=== PATIENT | female | born 1975 | race American Indian/Alaskan Native ===

== ENCOUNTER 2018-07-20 21:12 | Emergency (ER) | payer OTHER ==
[2018-07-20] MEDS: HYDROmorphone 2 MG/ML SDV IM ONE (21:39)
[2018-07-20] MEDS: Promethazine 25 MG/ML SDV IM ONE (21:46)
--- NOTE | 2018-07-20 22:01 | EDM.PDOC ---
ED HPI GENERAL MEDICAL PROBLEM - General Chief Complaint: Headache Stated Complaint: HEADACHE Time Seen by Provider: 07/20/18 21:20 Source of Information: Reports: Patient History Limitations: Reports: No Limitations - History of Present Illness INITIAL COMMENTS - FREE TEXT/NARRATIVE: Pt claims that she has been having sever migraine headache since 3 PM today. She has been having throbbing right sided headache, with nausea and vomiting. Pt did take her zomig and has not stopped the headache. tired to sleep in dark room. C/o photophobia and phonophobia. Pt claims she get headache 2-3 times a week, and zomig helps with here headache, but sometimes her headache gets worse. Pt has history of chronic migraine, has tired Topamax, Botox injection. Presently followup at pain clinic in [place]. Onset: Today Onset Date: 07/20/18 Onset Time: 15:00 Duration: Getting Worse Location: Reports: Head Quality: Reports: Ache Severity: Severe Improves with: Reports: None Worsens with: Reports: None Associated Symptoms: Reports: Headaches, Nausea/Vomiting. Denies: Confusion, Chest Pain, Cough, Diaphoresis, Fever/Chills, Rash, Seizure, Shortness of Breath , Syncope, Weakness - Related Data Allergies Allergy/AdvReac Type Severity Reaction Status Date / Time acetaminophen Allergy Nausea and Verified 07/20/18 21:49 [From Darvocet-N] Vomiting propoxyphene Allergy Nausea and Verified 07/20/18 21:49 [From Darvocet-N] Vomiting Home Meds: Home Meds Ondansetron HCl [Zofran] 4 mg PO Q4H PRN 07/20/18 [History] Sertraline [Zoloft] 25 mg PO BEDTIME 07/20/18 [History] Spironolactone 50 mg PO DAILY 07/20/18 [History] ZOLMitriptan [Zomig] 5 mg PO PRN 07/20/18 [History] tiZANidine [Zanaflex] 4 mg PO BEDTIME PRN 07/20/18 [History] traMADol [Ultram] 50 mg PO Q4H PRN 07/20/18 [History] ED ROS GENERAL - Review of Systems Review Of Systems: See Below Constitutional: Denies: Fever, Chills HEENT: Reports: Other (photophobia and phonophobia). Denies: Ear Pain, Rhinitis , Throat Pain Respiratory: Denies: Shortness of Breath, Pleuritic Chest Pain, Cough, Sputum Cardiovascular: Denies: Chest Pain, Lightheadedness GI/Abdominal: Reports: Nausea, Vomiting. Denies: Abdominal Pain : Denies: Dysuria, Frequency Musculoskeletal: Denies: Joint Pain, Joint Swelling Neurological: Reports: Headache. Denies: Confusion, Dizziness, Numbness, Tingling, Tremors, Difficulty Walking, Change in Speech, Gait Disturbance ED EXAM, GENERAL - Physical Exam Exam: See Below Exam Limited By: No Limitations General Appearance: Alert, WD/WN, Moderate Distress, Other (wretching but no vomtus) Eye Exam: Bilateral Eye: EOMI, PERRL Ears: Normal External Exam, Normal Canal, Hearing Grossly Normal, Normal TMs Ear Exam: Bilateral Ear: Auricle Normal, Canal Normal, TM normal Nose: Normal Inspection, Normal Mucosa, No Blood Throat/Mouth: Normal Inspection, Normal Lips, Normal Teeth, Normal Gums, Normal Oropharynx, Normal Voice, No Airway Compromise Head: Atraumatic, Normocephalic Neck: Normal Inspection, Supple, Non-Tender, Full Range of Motion Respiratory/Chest: No Respiratory Distress, Lungs Clear, Normal Breath Sounds, No Accessory Muscle Use, Chest Non-Tender Cardiovascular: Normal Peripheral Pulses, Regular Rate, Rhythm, No Edema, No Gallop, No JVD, No Murmur, No Rub Neurological: Alert, Oriented, CN II-XII Intact, Normal Cognition, Normal Gait, Normal Reflexes, No Motor/Sensory Deficits Psychiatric: Normal Affect, Normal Mood Skin Exam: Warm, Intact Course - Vital Signs Text/Narrative:: Pt is having acute migraine attack,with history of chronic migraine. Pt did receive Dilaudid 2mg Im with Phenergan 50mg. And resting in the emergency room. Pt's nausea and wretching has resolved, still c/o headache. Pt advised to go home and rest, and the headache should abort. advised to followup with her pain clinic for further care. - Orders/Labs/Meds Meds: Medications Discontinued Medications Generic Name Dose Route Start Last Admin Trade Name Freq PRN Reason Stop Dose Admin Hydromorphone HCl 2 mg 07/20/18 21:36 Dilaudid IM 07/20/18 21:37 ONETIME ONE Promethazine HCl 50 mg 05/22/19 21:37 Phenergan IM 07/20/18 21:38 ONETIME ONE Departure - Departure Time of Disposition: 22:10 Disposition: Home, Self-Care 01 Condition: Fair Clinical Impression: Migraine - Discharge Information *PRESCRIPTION DRUG MONITORING PROGRAM REVIEWED*: Not Applicable *COPY OF PRESCRIPTION DRUG MONITORING REPORT IN PATIENT HUNG: Not Applicable Additional Instructions: Pt is having acute migraine attack,with history of chronic migraine. Pt did receive Dilaudid 2mg Im with Phenergan 50mg. And resting in the emergency room. Pt advised to go home and rest, and the headache should abort. advised to followup with her pain clinic for further care - Problem List & Annotations (1) Migraine SNOMED Code(s): 19465477 Code(s): G43.909 - MIGRAINE, UNSP, NOT INTRACTABLE, WITHOUT STATUS MIGRAINOSUS Status: Acute - Problem List Review Problem List Initiated/Reviewed/Updated: Yes - Assessment/Plan Assessment:: migraine attack Plan: Pt is having acute migraine attack,with history of chronic migraine. Pt did receive Dilaudid 2mg Im with Phenergan 50mg. And resting in the emergency room. Pt's nausea and wretching has resolved, still c/o headache. Pt advised to go home and rest, and the headache should abort. advised to followup with her pain clinic for further care
== END 2018-07-20 22:00 | disposition home or self-care (01) ==
LOC: LB.ED 21:12
DX: G43.909 Migraine, unspecified, not intractable, without status migrainosus (principal); Z88.6 Allergy status to analgesic agent; Z88.8 Allergy status to other drugs, medicaments and biological substances
CPT/HCPCS: 96372; 99283; J1170; J2550

== ENCOUNTER 2019-06-15 16:51 | Emergency (ER) | payer OTHER ==
[2019-06-15] MEDS: Sodium Chloride 0.9% 1,000 ML IV ONE (16:55)
[2019-06-15] MEDS: Ketorolac 60 MG/2 ML SDV IVPUSH ONE (17:40)
[2019-06-15] MEDS: Ketorolac 30 MG/ML SDV ONE (17:40)
[2019-06-15] MEDS: diphenhydrAMINE 50 MG/ML SDV IVPUSH ONE (17:44)
[2019-06-15] MEDS ORDERED: diphenhydrAMINE 50 MG/ML SDV ONE (17:44)
[2019-06-15] MEDS ORDERED: Prochlorperazine 10 MG/2 ML SDV ONE (17:45)
[2019-06-15] MEDS: Prochlorperazine 10 MG/2 ML SDV IVPUSH ONE (17:50)
--- NOTE | 2019-06-15 18:12 | EDM.PDOC ---
ED HPI GENERAL MEDICAL PROBLEM - General Time Seen by Provider: 06/15/19 17:00 Source of Information: Reports: Patient History Limitations: Reports: No Limitations - History of Present Illness INITIAL COMMENTS - FREE TEXT/NARRATIVE: Estelita presents tonight for evaluation of atypical migraine. She states that once a year she has a migraine of the severity, and has had to be treated through the emergency department for such. She denies any changes including recent head trauma or fevers. She was feeling well until around 1 PM this afternoon when she had the gradual onset of a typical throbbing headache. This became associated with nausea and photophobia. She took 2 Zomig, as well as a Zofran, and was not able to find any particular relief. She subsequently came in. She has had no recent malaise, coughing, or neurologic changes. Her gait and coordination have been normal. 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 Treatments, NSAIDS Head Pain Score (Numeric/FACES): 10 - Related Data Allergies Allergy/AdvReac Type Severity Reaction Status Date / Time acetaminophen Allergy Nausea and Verified 07/20/18 21:49 [From Darvocet-N] Vomiting propoxyphene Allergy Nausea and Verified 07/20/18 21:49 [From Darvocet-N] Vomiting Home Meds: Home Meds Ondansetron HCl [Zofran] 4 mg PO Q4H PRN 07/20/18 [History] Sertraline [Zoloft] 25 mg PO BEDTIME 07/20/18 [History] Spironolactone 50 mg PO DAILY 07/20/18 [History] ZOLMitriptan [Zomig] 5 mg PO BID PRN 07/20/18 [History] tiZANidine [Zanaflex] 4 mg PO BEDTIME PRN 07/20/18 [History] traMADol [Ultram] 50 mg PO Q4H PRN 07/20/18 [History] Past Medical History HEENT History: Reports: Other (See Below) Other HEENT History: migraine headaches Cardiovascular History: Reports: Hypertension Social & Family History - Tobacco Use Smoking Status *Q: Never Smoker Second Hand Smoke Exposure: No - Caffeine Use Caffeine Use: Reports: None - Recreational Drug Use Recreational Drug Use: No ED ROS GENERAL - Review of Systems Review Of Systems: Comprehensive ROS is negative, except as noted in HPI. ED EXAM, GENERAL - Physical Exam Exam: See Below Exam Limited By: No Limitations General Appearance: Alert, WD/WN, No Apparent Distress. No: Anxious Eye Exam: Bilateral Eye: EOMI, Normal Inspection, PERRL Ears: Normal External Exam, Hearing Grossly Normal Nose: Normal Inspection, Normal Mucosa Throat/Mouth: Normal Inspection, Normal Lips, Normal Gums, Normal Voice Head: Atraumatic, Normocephalic Neck: Normal Inspection, Supple, Non-Tender, Full Range of Motion, Other (No nuchal findings noted) Respiratory/Chest: No Respiratory Distress, Lungs Clear, Normal Breath Sounds Cardiovascular: Regular Rate, Rhythm, No Gallop, No Murmur GI/Abdominal: Normal Bowel Sounds, Soft, Non-Tender Extremities: Normal Inspection, Normal Range of Motion, Non-Tender, No Pedal Edema, Normal Capillary Refill Neurological: Alert, Oriented, CN II-XII Intact, Normal Cognition, No Motor/ Sensory Deficits Psychiatric: Normal Affect, Normal Mood Skin Exam: Warm, Dry, Intact Lymphatic: No Adenopathy Course - Vital Signs Text/Narrative:: I discussed the patient's elevated diastolic blood pressure, and I cannot wonder if this is truly accurate. 1 where another, encouraged her to continue to follow this and possibly even return for a blood pressure check. Her symptoms alleviated completely after IV Compazine Benadryl and Toradol. She had no further evidence of vision issues or hypertensive encephalopathy. This appeared to normalize prior to departure. Both her and her were educated about potential side effects from the Compazine and the antidote being Benadryl. They seemed appreciative of the care and reliable to return with any recurrence or other issues that come up. Last Recorded V/S: Last Vital Signs Temp 97.3 F 06/15/19 16:51 Pulse 85 06/15/19 18:14 Resp 16 06/15/19 16:51 BP 114/81 06/15/19 18:14 Pulse Ox 100 06/15/19 16:51 - Orders/Labs/Meds Meds: Medications Discontinued Medications Generic Name Dose Route Start Last Admin Trade Name Freq PRN Reason Stop Dose Admin Diphenhydramine HCl 25 mg 06/15/19 17:21 06/15/19 17:44 Benadryl IVPUSH 06/15/19 17:22 25 mg ONETIME ONE Administration Diphenhydramine HCl Confirm 06/15/19 17:44 Benadryl Administered 06/15/19 17:45 Dose 50 mg .ROUTE .STK-MED ONE Sodium Chloride 1,000 mls @ 999 mls/hr 06/15/19 16:55 06/15/19 16:55 Normal Saline IV 06/15/19 17:55 999 mls/hr .BOLUS ONE Administration Ketorolac Tromethamine 15 mg 06/15/19 17:21 06/15/19 17:40 Toradol IVPUSH 06/15/19 17:22 15 mg ONETIME ONE Administration Ketorolac Tromethamine Confirm 06/15/19 17:45 Toradol Administered 06/15/19 17:46 Dose 30 mg .ROUTE .STK-MED ONE Prochlorperazine Edisylate 10 mg 06/15/19 17:20 06/15/19 17:50 Compazine IVPUSH 06/15/19 17:21 10 mg ONETIME ONE Administration Prochlorperazine Edisylate Confirm 06/15/19 17:45 Compazine Administered 06/15/19 17:46 Dose 10 mg .ROUTE .STK-MED ONE Departure - Departure Time of Disposition: 18:00 Disposition: Home, Self-Care 01 Condition: Good Clinical Impression: Migraine Qualifiers: Migraine type: unspecified Status migrainosus presence: without status migrainosus Intractability: not intractable Qualified Code(s): G43.909 - Migraine, unspecified, not intractable, without status migrainosus - Discharge Information Instructions: Migraine Headache, [id number] Referrals: PCP,None [Primary Care Provider] - Forms: ED Department Discharge Additional Instructions: Come back with any problems. Keep an eye on your blood pressure and/or come back for a recheck. Thanks for your time. Sincerely, Ted Boyd MD Sepsis Event Note - Evaluation Sepsis Screening Result: No Definite Risk - Focused Exam Vital Signs: Vital Signs Temp Pulse Resp BP Pulse Ox 06/15/19 18:14 85 114/81 06/15/19 16:51 97.3 F 87 16 154/114 H 100 Date Exam was Performed: 06/15/19 Time Exam was Performed: 18:20
== END 2019-06-15 18:21 | disposition home or self-care (01) ==
LOC: LB.ED 16:51
DX: G43.909 Migraine, unspecified, not intractable, without status migrainosus (principal); I10 Essential (primary) hypertension; Z88.6 Allergy status to analgesic agent; Z88.8 Allergy status to other drugs, medicaments and biological substances; Z79.899 Other long term (current) drug therapy
CPT/HCPCS: 96374; 96375; 99283-25; 99284; J0780; J1200; J1885; J7030

== ENCOUNTER 2019-11-20 08:06 | Emergency (ER) | payer OTHER ==
[2019-11-20] MEDS ORDERED: diphenhydrAMINE 50 MG/ML SDV IVPUSH ONE (08:11)
[2019-11-20] MEDS ORDERED: Ketorolac 60 MG/2 ML SDV IVPUSH ONE (08:11)
[2019-11-20] MEDS ORDERED: diphenhydrAMINE 50 MG/ML SDV ONE (08:23)
[2019-11-20] MEDS ORDERED: Prochlorperazine 10 MG/2 ML SDV ONE (08:23)
[2019-11-20] MEDS ORDERED: Ketorolac 30 MG/ML SDV ONE (08:23)
[2019-11-20] MEDS ORDERED: Sodium Chloride 0.9% 1,000 ML IV ONE (08:35)
[2019-11-20] MEDS ORDERED: Promethazine 12.5 MG in Sodium Chloride 0.9% 50 ML IV PRN (08:35)
[2019-11-20] MEDS ORDERED: Promethazine 25 MG/ML SDV ONE (08:49)
--- NOTE | 2019-11-20 09:37 | EDM.PDOC ---
ED HPI GENERAL MEDICAL PROBLEM - General Chief Complaint: Headache Stated Complaint: MIGRAINE Time Seen by Provider: 11/20/19 08:50 Source of Information: Reports: Patient, RN History Limitations: Reports: No Limitations - History of Present Illness INITIAL COMMENTS - FREE TEXT/NARRATIVE: patient woke with migraine at 0430, tried to take prescribed medications but vomited. Presente to ED with typical migraine. + photophobia and nausea. 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) - Related Data Allergies Allergy/AdvReac Type Severity Reaction Status Date / Time acetaminophen Allergy Nausea and Verified 11/20/19 08:09 [From Darvocet-N] Vomiting propoxyphene Allergy Nausea and Verified 11/20/19 08:09 [From Darvocet-N] Vomiting Home Meds: Home Meds Sertraline [Zoloft] 25 mg PO BEDTIME 07/20/18 [History] Spironolactone 50 mg PO DAILY 07/20/18 [History] ZOLMitriptan [Zomig] 5 mg PO BID PRN 07/20/18 [History] ondansetron HCL [Zofran] 4 mg PO Q4H PRN 07/20/18 [History] tiZANidine [Zanaflex] 4 mg PO BEDTIME PRN 07/20/18 [History] traMADol [Ultram] 50 mg PO Q4H PRN 07/20/18 [History] Past Medical History HEENT History: Reports: Other (See Below) Other HEENT History: migraine headaches Cardiovascular History: Reports: Hypertension Social & Family History - Caffeine Use Caffeine Use: Reports: None ED ROS GENERAL - Review of Systems Review Of Systems: See Below Constitutional: Reports: No Symptoms HEENT: Reports: No Symptoms Respiratory: Reports: No Symptoms Cardiovascular: Reports: No Symptoms Endocrine: Reports: No Symptoms GI/Abdominal: Reports: No Symptoms : Reports: No Symptoms Musculoskeletal: Reports: No Symptoms Skin: Reports: No Symptoms Neurological: Reports: Headache Psychiatric: Reports: No Symptoms Hematologic/Lymphatic: Reports: No Symptoms - Physical Exam Exam: See Below Exam Limited By: No Limitations General Appearance: Alert, No Apparent Distress Eye Exam: Bilateral Eye: PERRL Ears: Normal External Exam Throat/Mouth: Normal Voice Head Exam: Atraumatic Neck: Full Range of Motion Respiratory/Chest: No Respiratory Distress, Lungs Clear, Normal Breath Sounds Cardiovascular: Regular Rate, Rhythm, No Murmur GI/Abdominal: No Distention (Female) Exam: Deferred Rectal (Female) Exam: Deferred Neuro Exam (Abbreviated): Alert, Oriented, Normal Cognition, No Motor/Sensory Deficits Back Exam: Full Range of Motion Extremities: Normal Range of Motion Psychiatric: Normal Affect, Normal Mood Skin Exam: Warm, Dry, Intact Course - Orders/Labs/Meds Meds: Medications Discontinued Medications Generic Name Dose Route Start Last Admin Trade Name Freq PRN Reason Stop Dose Admin Diphenhydramine HCl Confirm 11/20/19 08:23 Benadryl Administered 11/20/19 08:24 Dose 50 mg .ROUTE .STK-MED ONE Ketorolac Tromethamine Confirm 11/20/19 08:23 Toradol Administered 11/20/19 08:24 Dose 30 mg .ROUTE .STK-MED ONE Prochlorperazine Edisylate Confirm 11/20/19 08:23 Compazine Administered 11/20/19 08:24 Dose 10 mg .ROUTE .STK-MED ONE Promethazine HCl Confirm 11/20/19 08:49 Phenergan Administered 11/20/19 08:50 Dose 25 mg .ROUTE .STK-MED ONE Departure - Departure Time of Disposition: 09:35 Disposition: Home, Self-Care 01 Condition: Good Clinical Impression: Migraine Migraine Qualifiers: Migraine type: other Status migrainosus presence: with status migrainosus Intractability: intractable Qualified Code(s): G43.811 - Other migraine, intractable, with status migrainosus - Discharge Information *PRESCRIPTION DRUG MONITORING PROGRAM REVIEWED*: Not Applicable *COPY OF PRESCRIPTION DRUG MONITORING REPORT IN PATIENT HUNG: Not Applicable Instructions: Migraine Headache, [id number] Referrals: PCP,None [Primary Care Provider] - Additional Instructions: Take tylenol and zofran at home as needed. Rest today. Drink plenty of fluids. Return to ED for any increased or new concerning symptoms. Follow up with your PMD as needed.
== END 2019-11-20 09:38 | disposition home or self-care (01) ==
LOC: LB.ED 08:06
DX: G43.811 Other migraine, intractable, with status migrainosus (principal); I10 Essential (primary) hypertension; Z88.6 Allergy status to analgesic agent; Z79.899 Other long term (current) drug therapy
CPT/HCPCS: 96361; 96374; 96375; 99283; J1200; J1885; J2550; J7030; J7050

== ENCOUNTER 2020-04-03 05:28 | Emergency (ER) | payer OTHER ==
[2020-04-03] MEDS ORDERED: Promethazine 25 MG in Sodium Chloride 0.9% 50 ML IV ONE ×2 (05:29→07:25)
[2020-04-03] MEDS ORDERED: Dexamethasone 4 MG Tab ONE (06:42)
[2020-04-03] MEDS ORDERED: Ketorolac 10 MG Tab ONE (06:43)
[2020-04-03] MEDS ORDERED: diphenhydrAMINE 50 MG Cap ONE (06:47)
[2020-04-03] MEDS ORDERED: Ondansetron 4 MG Tab.DIS ONE (06:47)
[2020-04-03] MEDS ORDERED: Ketorolac 30 MG/ML SDV IVPUSH ONE (07:03)
[2020-04-03] MEDS ORDERED: diphenhydrAMINE 50 MG/ML SDV IVPUSH ONE (07:03)
[2020-04-03] MEDS ORDERED: Dexamethasone 4 MG/ML SDV IVPUSH ONE (07:04)
[2020-04-03] MEDS ORDERED: HYDROmorphone 2 MG/ML SDV IM ONE (07:06)
[2020-04-03] MEDS ORDERED: HYDROmorphone 2 MG/ML SDV ONE (07:18)
[2020-04-03] MEDS ORDERED: Promethazine 25 MG/ML SDV ONE (07:18)
[2020-04-03] MEDS ORDERED: Dexamethasone 4 MG/ML SDV ONE (07:21)
[2020-04-03] MEDS ORDERED: Ketorolac 30 MG/ML SDV ONE (07:21)
[2020-04-03] MEDS ORDERED: HYDROmorphone 2 MG/ML SDV IVPUSH ONE (07:45)
--- NOTE | 2020-04-03 10:05 | EDM.PDOC ---
ED HPI GENERAL MEDICAL PROBLEM - General Chief Complaint: Headache Stated Complaint: migraine Time Seen by Provider: 04/03/20 06:00 Source of Information: Reports: Family History Limitations: Reports: No Limitations - History of Present Illness INITIAL COMMENTS - FREE TEXT/NARRATIVE: 44 years old female known patient of migraine came early in the morning for headache started at 1.30 Am in the morning .The onset of pain was sudden ,sharp , non radiating & worse with light & movement .She also felt nauseated but did not through up.She is on migraine med but nothing is helping her . 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: migraine medication and zofran at home Bilateral Anterior Head Pain Score (Numeric/FACES): 3 - Related Data Allergies Allergy/AdvReac Type Severity Reaction Status Date / Time acetaminophen Allergy Nausea and Verified 04/03/20 06:59 [From Darvocet-N] Vomiting propoxyphene Allergy Nausea and Verified 04/03/20 06:59 [From Darvocet-N] Vomiting Home Meds: Home Meds Sertraline [Zoloft] 25 mg PO BEDTIME 07/20/18 [History] Spironolactone 50 mg PO DAILY 07/20/18 [History] ZOLMitriptan [Zomig] 5 mg PO BID PRN 07/20/18 [History] ondansetron HCL [Zofran] 4 mg PO Q4H PRN 07/20/18 [History] tiZANidine [Zanaflex] 4 mg PO BEDTIME PRN 07/20/18 [History] traMADol [Ultram] 50 mg PO Q4H PRN 07/20/18 [History] Past Medical History HEENT History: Reports: Other (See Below) Other HEENT History: migraine headaches Cardiovascular History: Reports: Hypertension 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: Neurological History: Reports: Migraines Psychiatric History: Reports: Depression Social & Family History - Family History Family Medical History: No Pertinent Family History - Caffeine Use Caffeine Use: Reports: None - Recreational Drug Use Recreational Drug Use: No ED ROS GENERAL - Review of Systems Review Of Systems: See Below Constitutional: Reports: No Symptoms HEENT: Reports: No Symptoms Respiratory: Reports: No Symptoms, Shortness of Breath Cardiovascular: Reports: No Symptoms Endocrine: Reports: No Symptoms GI/Abdominal: Reports: No Symptoms Musculoskeletal: Reports: No Symptoms ED EXAM, GENERAL - Physical Exam Exam: See Below Exam Limited By: No Limitations General Appearance: Alert, No Apparent Distress, Anxious, Lethargic Head: Atraumatic, Normocephalic Respiratory/Chest: No Respiratory Distress Cardiovascular: Normal Peripheral Pulses GI/Abdominal: Normal Bowel Sounds Neurological: Alert, Oriented, CN II-XII Intact, Normal Reflexes, No Motor/Sensory Deficits Course - Vital Signs Text/Narrative:: patient brought to ED by family member screened for covid 19 before bring her to ER I went out to see her in the car She was stooping down & holding her head .she was anxious &lethargic Her covid test came back negative I brought her to ER . I examine her & she was not able to open the eyes I turned off light At 7.15 ,I gave her Toradol 30mg & dexamethasone 4mg I/V I repeated [id number] mg 1/v at 7.26 am But she was not feeling better . At 7.45 am ,inj Dilaudid 2 mg i/v given pain level reduced and discharge at pain level 3 . she left ER in stable position Last Recorded V/S: Last Vital Signs Temp 97.7 F 04/03/20 08:07 Pulse 100 04/03/20 08:07 Resp 16 04/03/20 08:07 BP 135/82 04/03/20 08:07 Pulse Ox 100 04/03/20 08:07 - Orders/Labs/Meds Labs: Laboratory Tests 04/03/20 Range/Units 06:19 SARS-CoV-2 RNA (MICHELLE) Negative (NEGATIVE) Meds: Medications Discontinued Medications Generic Name Dose Route Start Last Admin Trade Name John PRN Reason Stop Dose Admin Dexamethasone Confirm 04/03/20 06:42 04/03/20 07:04 Dexamethasone Administered 04/03/20 06:43 Not Given Dose 4 mg .ROUTE .STK-MED ONE Dexamethasone 4 mg 04/03/20 07:04 04/03/20 07:17 Decadron IVPUSH 04/03/20 07:05 4 mg ONETIME ONE Administration Dexamethasone Confirm 04/03/20 07:21 04/03/20 07:36 Decadron Administered 04/03/20 07:22 Not Given Dose 4 mg .ROUTE .STK-MED ONE Diphenhydramine HCl Confirm 04/03/20 06:47 04/03/20 07:04 Benadryl Administered 04/03/20 06:48 Not Given Dose 50 mg .ROUTE .STK-MED ONE Diphenhydramine HCl 50 mg 04/03/20 07:03 04/03/20 07:37 Benadryl IVPUSH 04/03/20 07:04 Not Given ONETIME ONE Hydromorphone HCl 2 mg 04/03/20 07:06 04/03/20 07:36 Dilaudid IM 04/03/20 07:07 Not Given ONETIME ONE Hydromorphone HCl Confirm 04/03/20 07:18 04/03/20 07:34 Dilaudid Administered 04/03/20 07:19 Not Given Dose 2 mg .ROUTE .STK-MED ONE Hydromorphone HCl 2 mg 04/03/20 07:45 04/03/20 07:45 Dilaudid IVPUSH 04/03/20 07:46 2 mg ONETIME ONE Administration Promethazine HCl 25 mg/ Sodium 51 mls @ 200 mls/hr 04/03/20 07:25 04/03/20 07:25 Chloride IV 04/03/20 07:40 200 mls/hr ONETIME ONE Administration Ketorolac Tromethamine Confirm 04/03/20 06:43 04/03/20 07:04 Toradol Administered 04/03/20 06:44 Not Given Dose 10 mg .ROUTE .STK-MED ONE Ketorolac Tromethamine 30 mg 04/03/20 07:03 04/03/20 07:15 Toradol IVPUSH 04/03/20 07:04 30 mg ONETIME ONE Administration Ketorolac Tromethamine Confirm 04/03/20 07:21 04/03/20 07:33 Toradol Administered 04/03/20 07:22 Not Given Dose 30 mg .ROUTE .STK-MED ONE Ondansetron HCl Confirm 04/03/20 06:47 04/03/20 07:05 Zofran Odt Administered 04/03/20 06:48 Not Given Dose 4 mg .ROUTE .STK-MED ONE Promethazine HCl Confirm 04/03/20 07:18 04/03/20 07:34 Phenergan Administered 04/03/20 07:19 Not Given Dose 25 mg .ROUTE .STK-MED ONE Departure - Departure Time of Disposition: 08:00 Disposition: Home, Self-Care 01 Clinical Impression: Migraine Qualifiers: Migraine type: without aura Status migrainosus presence: with status migrainosus Intractability: intractable Qualified Code(s): G43.011 - Migraine without aura, intractable, with status migrainosus - Discharge Information *PRESCRIPTION DRUG MONITORING PROGRAM REVIEWED*: No *COPY OF PRESCRIPTION DRUG MONITORING REPORT IN PATIENT HUNG: No Instructions: Migraine Headache, Recurrent Migraine Headache, [id number], Recurrent Migraine Headache Care Plan Goals: Rest and stay hydrated. Follow up with your primary Care provider as needed. Sepsis Event Note (ED) - Evaluation Sepsis Screening Result: No Definite Risk - Focused Exam Vital Signs: Vital Signs Temp Pulse Resp BP Pulse Ox 04/03/20 08:07 97.7 F 100 16 135/82 100 04/03/20 07:47 97 F 57 L 18 156/99 H 100
== END 2020-04-03 08:23 | disposition home or self-care (01) ==
LOC: LB.ED 05:28
DX: G43.011 Migraine without aura, intractable, with status migrainosus (principal); I10 Essential (primary) hypertension; Z20.822 Contact with and (suspected) exposure to COVID-19; Z88.5 Allergy status to narcotic agent; Z79.899 Other long term (current) drug therapy
CPT/HCPCS: 87635; 96365; 96375; 99283; J1100; J1170; J1885; J2550; 99284; U0002